=== PATIENT | male | born 1975 | race Caucasian/White ===

== ENCOUNTER → 2016-05-11 | Outpatient (CLI) | payer BC ==
[~2016-05-11] MED LIST: KEFLEX500 MG PO; NKHM; VICODIN 5/500 505 MG PO
== END | disposition home or self-care (01) ==
LOC: RAD 11:43
DX: S43.005A Unspecified dislocation of left shoulder joint, initial encounter (principal); M25.512 Pain in left shoulder

== ENCOUNTER → 2018-11-07 | Outpatient (CLI) | payer BC | END | disposition home or self-care (01) | LOC: US 09:29 | DX: R60.0 Localized edema (principal) ==